=== PATIENT | female | born 1980 | race Caucasian/White ===

== ENCOUNTER → 2016-09-30 | Outpatient (CLI) | payer OTHER ==
[~2016-09-30] MED LIST: ELAVIL 10 MG TA10 MG PO; PRILOSEC OTC20 MG PO; TOPAMAX50 MG PO; TYLENOL W/CODEIN1 E1 PO; VITAMIN D50000 UNIT PO; ZANTAC150 MG PO
== END ==
LOC: EMI 10:27
DX: G43.909 Migraine, unspecified, not intractable, without status migrainosus (principal)
CPT/HCPCS: 70553; A9577; J7050

== ENCOUNTER → 2016-10-16 | Day surgery (SDC) | payer OTHER ==
[~2016-10-16] VITALS: Ht 165.1 cm; Wt 105.2 kg
== END | disposition home or self-care (01) ==
LOC: OR 06:02
PROVIDERS: Orthopaedic Surgery
PROC: 0XBK0ZZ Excision of Left Hand, Open Approach (ICD-10-PCS; principal; 2016-10-16 11:15)
DX: M67.844 Other specified disorders of tendon, left hand (principal); K21.9 Gastro-esophageal reflux disease without esophagitis; Z79.899 Other long term (current) drug therapy; Z90.710 Acquired absence of both cervix and uterus; Z79.52 Long term (current) use of systemic steroids
CPT/HCPCS: J0690; J2250; J3010; J7120